=== PATIENT | female | born 1955 | race Caucasian/White ===

== ENCOUNTER 2020-10-28 06:41 | Observation (INO) ==
--- NOTE | 2020-10-07 10:35 | PAT Medication Instructions ---
Medication Instructions Date of Service October 07, 2020 Home Medications Medication Instructions Recorded 3-in-1 Commode #1 ea 08/25/20 Wheeled Walker #1 ea 08/25/20 calcium carbonate 600 mg calcium (1,500 mg) tablet 600 mg PO QAM diclofenac potassium 50 mg tablet 50 mg PO BID lisinopril 20 mg-hydrochlorothiazide 12.5 mg tablet 1 tab PO QAM rosuvastatin 20 mg tablet 10 mg PO QAM aspirin 81 mg PO QAM multivitamin 1 tab PO QAM ASK your surgeon for instructions diclofenac potassium 50 mg tablet 50 mg PO BID DO NOT take the morning of surgery calcium carbonate 600 mg calcium (1,500 mg) tablet 600 mg PO QAM lisinopril 20 mg-hydrochlorothiazide 12.5 mg tablet 1 tab PO QAM multivitamin 1 tab PO QAM Take morning of surgery With a small sip of water, OTHERWISE NOTHING TO EAT OR DRINK AFTER MIDNIGHT: rosuvastatin 20 mg tablet 10 mg PO QAM aspirin 81 mg PO QAM (unless otherwise directed by surgeon) Other Notes If you have any questions please call us at [phone] or [phone] or [phone] or [phone]
--- NOTE | 2020-10-10 10:21 | Anesthesiology Consultation ---
Date of Service October 10, 2020 Assessment & Plan (1) Encounter for pre-operative examination: Per assessment on 10/10: Travel screen negative. No known COVID-19 positive cont acts or current COVID-19 related symptoms. Patient states that for her Thanksgiving plans, she had planned on attending a Thanksgiving dinner with extended family of 30+ people 10/22. She was advised that if she choosing to attend this, she will need to have her surgery postponed due to the large ga thering and proximity of her surgery (she was also made aware that household members could not attend as well). She also states that her immediate family was planning on visiting for dinner 10/20 (son's family of 8 in addition to her household). Case reviewed with Kristina Lamb. Advised that okay to have this as long as social distancing/wearing mask/eating among households/following COVID precaution guidelines. The son's family cannot stay in patient's household for extended period of time due to proximity of surgery. Options reviewed with patient. Per Yanira at surgeon's office, she spoke with patient 10/11 and patient decided to cancel all Thanksgiving plans and keep surgery date as scheduled. Surgeon arranging preop COVID testing. Awaiting results. Chart Review Chart Review: Acceptable Risk for Surgery and Patient seen in Pre Admission Testing Teaching & Discussion Pre-Anesthesia Teaching/Discussion Notes: Instructed NPO after midnight before surgery,except medications with 15 cc of water. Medication instructions provided according to the PAT guidelines. History Surgery Operation Date: 10/28/20 10:40 Proposed Procedures p Left Total Hip Arthroplasty - Alcides Wen MD Height/Weight Height: 5 ft 2 in Weight: 64 kg Allergies Allergy/AdvReac Type Severity Reaction Status Date / Time No Known Allergies Allergy Unverified 09/30/20 13:21 Medications Home Medications Medication Instructions Recorded Confirmed Last Taken calcium carbonate 600 mg calcium 600 mg PO QAM 10/30/19 09/30/20 Unknown (1,500 mg) tablet diclofenac potassium 50 mg tablet 50 mg PO BID 10/30/19 09/30/20 Unknown lisinopril 20 1 tab PO QAM 10/30/19 09/30/20 Unknown mg-hydrochlorothiazide 12.5 mg tablet rosuvastatin 20 mg tablet 10 mg PO QAM 10/30/19 09/30/20 Unknown 3-in-1 Commode #1 ea 08/25/20 08/25/20 Unknown Wheeled Walker #1 ea 08/25/20 08/25/20 Unknown aspirin 81 mg PO QAM 09/30/20 09/30/20 Unknown multivitamin 1 tab PO QAM 09/30/20 09/30/20 Unknown Past Medical History Medical History Hip bursitis, left Hyperlipidemia Hypotension Osteoarthritis Exercise / Class Metabolic Activity II 4-5 Yardwork/Stairs/Walk up hill Past Family History Family History Mother Hypertension Father Diabetes Other No family history of adverse response to anesthesia Past Surgical History Surgical History History of colonoscopy History of right hip replacement History of wisdom tooth extraction Past Anesthesia History No Hx of Anesthesia Complications and No Family Hx of Anesthesia Complications History of PONV No Hx of PONV and No Hx of Motion Sickness Social History Smoking Status: Never smoker Do You Dip or Chew Tobacco: No Hx Alcohol Use: No Hx Substance Use: No substance use type: does not use Review of Systems Patient denies chest pain, shortness of breath, dyspnea on exertion, fever. chills, cough, wheezing, palpitations. Physical Exam Vital Signs VITALS BP 145/83 P 65 TEMP 98.6 SP02 98%RA RESP 16 PHYSICAL Full neck and c-spine range of motion. Full TMJ range of motion. TMD 3 finger breaths Mallampati Score 2 Dentition: intact Lungs: clear throughout to auscultation Cardiac: regular rate and rhythm, no murmurs noted Spine: normal Carotid arteries: negative bruit Extremities: no edema Testing Laboratory Results 10/10/20 10:46 10/10/20 10:46 PT 10.7 Seconds (9.0-12.0) 10/10/20 10:46 INR 1.0 (0.9-1.1) 10/10/20 10:46 APTT 24.4 Seconds (21.0-31.0) 10/10/20 10:46 Blood Type A Positive 10/10/20 10:46 Antibody Screen NEGATIVE 10/10/20 10:46 Electrocardiogram Date: 10/10/20 SB at 58bpm. LAD. Chest X-Ray Date: 10/10/20 FINDINGS: PA and lateral chest radiographs are compared to study dated 04/04/2015. The cardiomediastinal silhouette is unremarkable. The lungs and pleural spaces are clear. There is no pneumothorax. The bony thorax appears intact. A large calcified joint body is seen in the right shoulder. Degenerative change is noted in the thoracic spine. IMPRESSION: No active disease in the chest.
--- NOTE | 2020-10-10 11:28 | XRay Report ---
TWO VIEW CHEST CLINICAL HISTORY: Preoperative examination. FINDINGS: PA and lateral chest radiographs are compared to study dated 04/04/2015. The cardiomediastin al silhouette is unremarkable. The lungs and pleural spaces are clear. There is no pneumothorax. The bony thorax appears intact. A large calcified joint body is seen in the right shoulder. Degenerative change is noted in the thoracic spine. IMPRESSION: No active disease in the chest. ACT 112: Negative or not required by law. Electronically signed by: Quique Marquez M.D. 10/10/2020 11:27 AM
[2020-10-10 12:27] LABS: Basophils # (auto) 0.02 K/uL (0-0.2); Basophils % (auto) 0.3 %; Eosinophils # (auto) 0.04 K/uL (0-0.5); Eosinophils % (auto) 0.5 %; Lymphocytes # (auto) 1.59 K/uL (1.2-3.4); Lymphocytes % (auto) 21.4 %; Mean Corpuscular Hemoglobin 32.5 pg (25-34); Mean Corpuscular Hgb Conc 33.3 g/dL (32-36); Mean Corpuscular Volume 97.4 fL (80-100); Mean Platelet Volume 12.1 fL (7.4-10.4); Monocytes # (auto) 0.51 K/uL (0.11-0.59); Monocytes % (auto) 6.9 %; Neutrophils # (auto) 5.26 K/uL (1.4-6.5); Neutrophils % (auto) 70.9 %; Platelet Count 262 K/uL (130-400); RDW Coefficient of Variation 13.2 % (11.5-14.5); RDW Standard Deviation 47.2 fL (36.4-46.3); Red Blood Count 4.31 M/uL (4.2-5.4); White Blood Count 7.42 K/uL (4.8-10.8)
[2020-10-10 12:45] LABS: Partial Thromboplastin Ratio 0.9; Partial Thromboplastin Time 24.4 Seconds (21.0-31.0); Prothrombin Time 10.7 Seconds (9.0-12.0)
[2020-10-10 13:22] LABS: BUN Creatinine Ratio 30.6 (10-20); Blood Urea Nitrogen 24 mg/dl (7-18); C Reactive Protein < 0.29 mg/dl (0-0.29); Calcium 9.7 mg/dl (8.5-10.1); Carbon Dioxide 30 mmol/L (21-32); Chloride 105 mmol/L (98-107); Creatinine Clr Calc Pharmacy 61.6 ml/min; Est GFR (African American) 90.4; Glucose 94 mg/dl (70-99); Potassium 3.4 mmol/L (3.5-5.1); Sodium 140 mmol/L (136-145)
--- NOTE | 2020-10-10 13:26 | Electrocardiogram Report ---
Test Reason : Blood Pressure : / mmHG Vent. Rate : 058 BPM Atrial Rate : 058 BPM P-R Int : 148 ms QRS Dur : 090 ms QT Int : 432 ms P-R-T Axes : 066 -32 041 degrees QTc Int : 424 ms Sinus bradycardia Left axis deviation Abnormal ECG When compared with ECG of 04-APR-2015 11:33, No significant change was found Confirmed by Harsh Montes ([id number]) on 10/10/2020 1:26:13 PM Referred By: Alcides Wen Confirmed By:Harsh Montes
--- NOTE | 2020-10-21 10:01 | History and Physical Report ---
DATE OF ADMISSION: 10/28/2020 CHIEF COMPLAINT: Left hip pain and discomfort. HISTORY OF PRESENT ILLNESS: The patient is a 65-year-old female from [place] who presents for treatment of her left hip. She had a fairly long history of hip problems and had her right hip replaced back in 2014. She has had some intermittent bursal symptoms from this side. She has developed increased pain and discomfort in her left hip over the years. She describes groin pain, thigh pain and knee pain. Denies any numbness. It is affecting her ability to walk and get around. She has pain going up and down steps. She has nighttime pain. She has difficulty putting her shoes and socks on. She would like to proceed with left hip replacement. PAST MEDICAL HISTORY: Significant for, 1. Hypertension. 2. Elevated cholesterol. 3. Osteoarthritis. 4. Lumbar spondylosis. PAST SURGICAL HISTORY: Includes right hip replacement done on 05/03/2015. ALLERGIES: None. CURRENT MEDICINES: 1. Multiple anti-inflammatory agents. 2. Calcium carbonate. 3. Diclofenac. 4. Lisinopril/hydrochlorothiazide. 5. Rosuvastatin. SOCIAL HISTORY: A 65-year-old white female. She is from [place]. Her family is farmers. FAMILY HISTORY: Noncontributory. REVIEW OF SYSTEMS: Negative for diabetes, neurologic problem, vascular problems or bleeding disorders. No chest pain or shortness of breath. No history of DVT or PE. No known bleeding problems. PHYSICAL EXAMINATION: GENERAL: Shows a pleasant, middle-aged female. Looks to be in pretty good health. HEENT: Benign. NECK: Supple, no lymphadenopathy. LUNGS: Clear to auscultation. HEART: Has a regular rate and rhythm. ABDOMEN: Soft, nontender, nondistended. EXTREMITIES: Grossly neurovascularly intact except as follows: Examination of the hips reveals patient walks independently. She does limp on the left side. She is about 1/2-1/4 cm short on the left side compared to the right. Her left hip is very stiff with internal rotation and neutral at best. It recreates pain. Negative straight leg raise. No knee effusion. Examination of the right hip reveals a very mobile hip. Incision has healed nicely. Painless hip motion. X-RAYS: X-rays of the left hip were reviewed. It shows advanced left hip DJD. She has got complete loss of superior joint space with flattening of the femoral head. The right hip replacement looks to be in good position. No signs of wear. ASSESSMENT: A 65-year-old white female, 5 years out from right hip replacement, with several other comorbidities including hypertension, elevated cholesterol with advanced left hip degenerative joint disease. Very minimal response to conservative care. It is affecting her quality of life and she would like to have her left hip fixed. PLAN: We will proceed with left total hip replacement. The risks and benefits of this procedure were explained to the patient including but not limited to DVT, PE, , infection, neurological injury, vascular injury, bleeding problem, pain, limited range of motion, stiffness, failure to relieve her symptoms, incomplete relief of symptoms, need for further surgery in the future, fracture, leg length inequality, nerve palsy, dislocation, need for revision surgery, etc. The patient understands and desires to proceed. Informed consent was obtained. She will need to hold her NSAIDs 10 days preop. She will need to hold her lisinopril on the morning of surgery. She is planning to be discharged to home with [facility] program.
[~2020-10-28 06:41] MED LIST: ACETAMINOPHEN 500 MG TAB PO SCH; BUPIVACAINE 0.5 % 5 MG/1 ML PF 10ML VIAL ONE; FAMOTIDINE 20 MG TAB PO SCH; GABAPENTIN 300 MG CAP PO SCH; LR 500ML BOLUS, THEN 15ML/HR IV SCH; LR 60ML/HR IV SCH; METOCLOPRAMIDE HCL 10 MG TABLET PO SCH; TRANEXAMIC ACID 1,000 MG **IV Intra-op IV SCH; ceFAZolin 2000MG 2,000 MG/15 ML SYR IV SCH
--- NOTE | 2020-10-28 06:46 | History & Physical Bridge Note ---
Date of Service October 28, 2020 History & Physical Bridge Note I have examined the patient, reviewed the History & Physical and in the interval since the performance of the History & Physical I have noted the following changes of clinical significance: no changes noted
[2020-10-28] MEDS ORDERED: MIDAZOLAM HCL 1 MG/ML 2ML VIAL ONE (07:12)
[2020-10-28] MEDS ORDERED: MoRPHine SULFATE PF 1 MG/ML 10 ML AMP/VIAL ONE (07:13)
[2020-10-28] MEDS ORDERED: fentaNYL citrate 100 MCG/2 ML VIAL ONE (07:44)
[2020-10-28] MEDS ORDERED: BUPIVACAINE/EPINEPHRINE 0.5% MPF 1:200,000 30 ML VIAL ONE (08:28)
[2020-10-28] MEDS ORDERED: BACITRACIN INJ 50,000 UNIT VIAL ONE (08:28)
[2020-10-28] MEDS ORDERED: PROPOFOL IV EMULSION 10 MG/ML 20 ML VIAL IV ONE (08:58)
[2020-10-28] MEDS ORDERED: ePHEDrine sulfate 50 MG/ML SYR ONE (09:00)
[2020-10-28] MEDS ORDERED: ePHEDrine sulfate 50 MG/ML AMP ONE (09:00)
[2020-10-28] MEDS ORDERED: NALOXONE HCL 0.08 MG in SYRINGE 1.8 ML IV PRN (09:40)
[2020-10-28] MEDS ORDERED: LACTATED RINGER'S 500 ML IV PRN (09:40)
[2020-10-28] MEDS ORDERED: NALOXONE HCL 0.4 MG/1 ML VIAL/CARP IV PRN ×2 (09:40→11:20)
[2020-10-28] MEDS ORDERED: ePHEDrine sulfate 50 MG/ML AMP IV PRN (09:40)
[2020-10-28] MEDS ORDERED: MoRPHine SULFATE PF 1 MG/ML 10 ML AMP/VIAL INT SPINAL ONE (09:40)
[2020-10-28] MEDS ORDERED: PROMETHAZINE HCL 25 MG in SODIUM CHLORIDE 0.9% 50 ML IV PRN (09:40)
[2020-10-28] MEDS ORDERED: NALOXONE HCL 1 MG in SODIUM CHLORIDE 0.9% 1000ML 1,000 ML IV PRN (09:40)
[2020-10-28] MEDS ORDERED: diphenhydrAMINE 50 MG/ML VIAL IV PRN (09:40)
[2020-10-28] MEDS ORDERED: ONDANSETRON INJ 2 MG/ML 2 ML VIAL IV PRN (09:40)
[2020-10-28] MEDS ORDERED: NO NARCOTICS OR SEDATIVES SCH (09:45)
[2020-10-28] MEDS ORDERED: SODIUM CHLORIDE 0.9% 1000ML 1,000 ML IV SCH (09:45)
--- NOTE | 2020-10-28 10:05 | Post Operative Brief Note ---
PG Immediate Post Op with CF Date of Surgery October 28, 2020 Pre & Post Diagnosis Operation Date: 10/28/20 08:50 Pre-Op Diagnosis: Left Hip Advanced Degenerative Joint Disease Post-Op Diagnosis: Left Hip Advanced Degenerative Joint Disease I identified the patient and participated in the time-out.: Yes Procedure Operation Date: 10/28/20 08:50 Actual Procedures p Left Total Hip Arthroplasty--Uncemented(Left) - Alcides Wen MD Surgeon Alcides Wen MD Routing Equipment Tender ARELI Peña Estimated Blood Loss 200 Findings Consistent with Post-Op Diagnosis Fluids 800 cc. Specimens Specimen Description: A. Left Femoral Head Drains Meng Catheter Anesthesia Type Spinal MAC Complications none Disposition Accompanied Patient To Recovery: Yes Disposition: Recovery Room
--- NOTE | 2020-10-28 10:16 | Operative Report ---
Post Operative Report Pre & Post Diagnosis Operation Date: 10/28/20 08:50 Pre-Op Diagnosis: Left Hip Advanced Degenerative Joint Disease Post-Op Diagnosis: Left Hip Advanced Degenerative Joint Disease I identified the patient and participated in the time-out.: Yes Procedure Operation Date: 10/28/20 08:50 Actual Procedures p Left Total Hip Arthroplasty--Uncemented(Left) - Alcides Wen MD Surgeon Alcides Wen MD Loan Officer ARELI Peña Estimated Blood Loss 200 Findings Consistent with Post-Op Diagnosis Operative findings revealed advanced left hip DJD. She had grade 4 [id number] disease of the femoral head and acetabulum. She had significant anterior acetabular osteophytes as well as osteophytes around the femoral neck. She had a large posterior and inferior osteophyte around the acetabulum as well. Moderate-sized joint effusion. Fluids 800 cc. Specimens Left femoral head sent for pathology. Drains None. Anesthesia Type Spinal MAC Complications none Disposition Accompanied Patient To Recovery: Yes Disposition: Recovery Room Indications Patient is a 65-year-old female well-known to me from previous right hip replacement 5 years ago. She is done well from this side. Over the past year to 2 years she is developed increased pain discomfort and stiffness in her left hip. Pain became more debilitating. It was unresponsive to conservative care. She elected proceed with left total hip arthroplasty. Description of Procedure Operative implants consist of: 1. Biomet G7 size 52 mm acetabular shell. 2. 6.5 cancellous acetabular screws 1 of 35 mm length and 1 of 25 mm length. 3. An apex hole portable router operator. 4. Highly cross-linked polyethylene liner with a 52 mm outer diameter and 36 mm inner diameter. 5. Depuy Corail size 10 KLA femoral stem. 6. +5/36 mm ceramic articular ball. The patient was taken to the operating identified and placed on the operating table supine position but all contact areas were properly padded. IV antibiotics tried by anesthesia team. A spinal anesthetic and been implemented holding area. Meng catheter was placed in sterile fashion. Patient was then placed in the right lateral decubitus position. An axillary roll was placed. Stulberg hip positioner was used for positioning. Left hip and leg were then prepped and draped in usual sterile fashion. A posterior lateral approach to the left hip was then performed through a curvilinear incision centered over the greater trochanter. Sharp dissection carried through subcutaneous tissue down to level the IT band gluteal fascia. The IT band gluteal fascia then incised longitudinally in line with skin incisio n. The underlying greater bursa was excised. The piriformis and external rotators were tagged and taken off the posterior aspect of the femur. A posterior capsulotomy was then performed leaving a large flap for later repair. Great care was taken throughout the procedure protect the sciatic nerve at all times. The hip was internally rotated and dislocated. Femoral neck osteotomy cut was made with Final Cut 12 mm above the lesser trochanter. Femoral head was removed and sent for pathology. The femur was retracted anteriorly. Attention drawn the acetabulum. The acetabulum labrum was excised. The pulmonary fat was excised. Sequential reaming the acetabular was then performed given the size 43 and progressing up to 51. I did reamed a little bit with a 52 reamer and then placed a 52 mm Biomet G7 acetabular shell in about 40 degrees lateral opening and 20 degrees of anteversion. It was fixed with two 6.5 cancellous acetabular screws. Some anterior osteophytes were removed. Trial liner was placed. Attention drawn the femur. The proximal femur was entered with a cookie-cutter followed by canal finder. I then broached begin the size 8 and progressing up to a 10. Got good fit of 10. I then trialed the hip and the hip was fully stable with hip and leg extension, external rotation and flexion to 90 degrees internal rotation over [address] We elect to place these implants. Leg lengths seemed appropriate and equal. All trial implants were removed. An apex hole portable router operator was placed. Highly cross-linked polyethylene liner was placed. A Lisa KLA size 10 femoral stem was impacted in position. +5/36 mm ceramic articular ball was placed. Hip was located once again found to be stable. Attention drawn toward closing. Nupathe wounds irrigated copious also pulsatile lavage solution. I did inject locally with 60 cc of half percent Marcaine with epinephrine. The posterior capsule and external rotators were then repaired through drill holes in the posterior trochanter with #2 Tycron suture. The IT band gluteal fascia then closed #1 PDS suture running fashion. Subcutaneous tissues were closed with 2 layers the deep layer #2 Vicryl suture and subcutaneous tissues with 2-0 Dexon suture in a buried interrupted fashion the skin was closed skin effie. Legs then cleaned dried a sterile dressing composed of Xeroform, 4 x 4's, ABD pad, foam tape was applied. Patient then transferred to the recovery room in stable condition. Patient tolerated procedure well and there were no complications. Santosh Peña, my physician medical assistant internal medicine, was present for the entire procedure. His assistance was essential and required for appropriate patient positioning, prepping and draping, surgical exposure, performing the technical details of the operation, placement the implants, closure of the wound, and placement of the sterile bandage. I attest to the content of the Intraoperative Record and any orders documented therein. Any exceptions are noted below.
--- NOTE | 2020-10-28 10:38 | XRay Report ---
XR hip 1V LT w pelvis CLINICAL HISTORY: IN PACU - A/P PELVIS and LATERAL HIP COMPARISON: 06/20/2015 DISCUSSION: A total right hip arthroplasty is again visualized. There is now evidence for a total lef t hip arthroplasty. There is no dislocation. There are overlying skin effie. There is gas present w ithin the soft tissues consistent with recent surgery. IMPRESSION: Total hip arthroplasty. No evidence of dislocation ACT 112: Negative or not required by law. Electronically signed by: Brody Salder M.D. 10/28/2020 10:36 AM
--- NOTE | 2020-10-28 10:45 | Anesthesiology Progress Note ---
Date of Service October 28, 2020 Anesthesia Post Procedure Vital Signs Vital Signs: Temp Pulse Pulse Resp BP Pulse Ox 10/28/20 10:35 72 21 130/69 93 10/28/20 10:25 70 20 123/64 95 10/28/20 10:15 75 19 130/64 99 10/28/20 10:05 36.5 C 69 15 124/69 99 10/28/20 07:50 37.1 C 69 16 133/82 96 10/28/20 07:35 37.1 C 71 16 147/76 H 96 Transfer of Care Handoff Completed per policy Notes Mental Status: alert / awake / arousable Patient Amnestic to Procedure: Yes Nausea / Vomiting: adequately controlled Pain: adequately controlled Airway Patency, RR, SpO2: stable & adequate BP & HR: stable & adequate Hydration State: stable & adequate Neuraxial Anesthesia: was administered and sensory block is resolving Anesthetic Complications: no major complications apparent
[2020-10-28] MEDS ORDERED: bisacodyL 10 MG SUPP PR PRN (11:20)
[2020-10-28] MEDS ORDERED: METOCLOPRAMIDE HCL INJ 5 MG/ML 2 ML VIAL IV PRN (11:20)
[2020-10-28] MEDS ORDERED: MAGNESIUM HYDROXIDE SUSP 30 ML UDC PO PRN (11:20)
[2020-10-28] MEDS ORDERED: ALUMINUM/MAGNESIUM SUSP 30 ML UDC PO PRN (11:20)
[2020-10-28] MEDS: SODIUM CHLORIDE 0.9% 1000ML 1,000 ML IV SCH ×2 (11:40→21:35)
[2020-10-28] MEDS: KETOROLAC TROMETHAMINE 15 MG/ML VIAL IV SCH ×3 (13:28→23:43)
[2020-10-28] MEDS: ACETAMINOPHEN 500 MG TAB PO SCH ×2 (13:28→21:34)
[2020-10-28] MEDS: Scopolamine CHECK PATCH PLACEMENT SCH ×2 (15:53→23:46)
[2020-10-28] MEDS ORDERED: TRANEXAMIC ACID / 0.7% NACL 1,000 MG/100 ML BAG IV SCH (16:07)
[2020-10-28] MEDS: ceFAZolin 1000MG 1,000 MG/7.5 ML SYR IV SCH (17:48)
[2020-10-28] MEDS: ASCORBIC ACID 500 MG TAB PO SCH (18:09)
[2020-10-28] MEDS: FERROUS GLUCONATE 324 MG TAB PO SCH (18:09)
[2020-10-28] MEDS ORDERED: SENNA 8.6 MG TAB PO SCH (21:00)
[2020-10-28] MEDS: ASPIRIN 81 MG ECTAB PO SCH (21:33)
[2020-10-28] MEDS: DOCUSATE SODIUM 100 MG CAP PO SCH (21:34)
[2020-10-29] MEDS: ceFAZolin 1000MG 1,000 MG/7.5 ML SYR IV SCH (01:23)
[2020-10-29] MEDS ORDERED: HYDROmorphone INJ 0.5 MG/0.5 ML SYR IV PRN (03:40)
[2020-10-29] MEDS ORDERED: ONDANSETRON INJ 2 MG/ML 2 ML VIAL IV PRN (03:40)
[2020-10-29] MEDS ORDERED: traMADol HCL 50 MG TABLET PO PRN (03:40)
[2020-10-29] MEDS ORDERED: DC INTRASPINAL MORPHINE ONE (03:40)
[2020-10-29 04:24] LABS: Basophils # (auto) 0.01 K/uL (0-0.2); Basophils % (auto) 0.1 %; Eosinophils # (auto) 0.03 K/uL (0-0.5); Eosinophils % (auto) 0.4 %; Hematocrit (blood only) 32.1 % (37-47); Hemoglobin 10.6 g/dL (12.0-16.0); Immature Granulocytes # (auto) 0.01 K/uL (0.00-0.02); Immature Granulocytes % (auto) 0.1 %; Lymphocytes # (auto) 1.29 K/uL (1.2-3.4); Lymphocytes % (auto) 17.6 %; Mean Corpuscular Hemoglobin 32.2 pg (25-34); Mean Corpuscular Volume 97.6 fL (80-100); Monocytes # (auto) 0.61 K/uL (0.11-0.59); Monocytes % (auto) 8.3 %; Neutrophils # (auto) 5.36 K/uL (1.4-6.5); Neutrophils % (auto) 73.5 %; Platelet Count 199 K/uL (130-400); RDW Coefficient of Variation 13.1 % (11.5-14.5); RDW Standard Deviation 46.8 fL (36.4-46.3); Red Blood Count 3.29 M/uL (4.2-5.4); White Blood Count 7.31 K/uL (4.8-10.8)
[2020-10-29 04:40] LABS: BUN Creatinine Ratio 25.2 (10-20); Calcium 8.5 mg/dl (8.5-10.1); Creatinine Clr Calc Pharmacy 78.6 ml/min; Est GFR (African American) 108.9; Potassium 3.5 mmol/L (3.5-5.1)
[2020-10-29] MEDS: ACETAMINOPHEN 500 MG TAB PO SCH (06:00)
[2020-10-29] MEDS: KETOROLAC TROMETHAMINE 15 MG/ML VIAL IV SCH (06:00)
[2020-10-29] MEDS: ASCORBIC ACID 500 MG TAB PO SCH (08:00)
[2020-10-29] MEDS: FERROUS GLUCONATE 324 MG TAB PO SCH (09:00)
[2020-10-29] MEDS: Scopolamine CHECK PATCH PLACEMENT SCH (09:00)
[2020-10-29] MEDS ORDERED: LISINOPRIL/HCTZ 20/12.5MG 1 TAB TAB PO SCH (09:00)
[2020-10-29] MEDS ORDERED: CALCIUM 600MG + VIT D 400 IU TAB PO SCH (09:00)
[2020-10-29] MEDS: ASPIRIN 81 MG ECTAB PO SCH (09:00)
[2020-10-29] MEDS ORDERED: MULTIVITAMIN TAB PO SCH ×2 (09:00)
[2020-10-29] MEDS: DOCUSATE SODIUM 100 MG CAP PO SCH (09:00)
[2020-10-29] MEDS ORDERED: ROSUVASTATIN CALCIUM 10 MG TAB PO SCH (09:00)
--- NOTE | 2020-10-29 13:40 | Progress Notes ---
DATE: 10/29/2020 SUBJECTIVE: A 65-year-old female postop day #1 from a left hip replacement. She is doing quite well. Had a pretty good night. Pain is controlled. No chest pain or shortness of breath. Not feeling dizzy or lightheaded. OBJECTIVE GENERAL: Shows a pleasant, middle-aged female. She is lying in bed, looks quite comfortable this morning. LUNGS: Clear to auscultation. HEART: Has a regular rate and rhythm. ABDOMEN: Soft, nontender, nondistended. EXTREMITIES: Grossly neurovascularly intact except as follows. Examination of the left lower extremity reveals the dressing to be clean, dry and intact. Leg lengths are equal. Thigh is soft. She can dorsiflex and plantarflex her foot appropriately. ASSESSMENT: A 65-year-old female postop day #1 from a left hip replacement, doing pretty well. PLAN: 1. DVT prophylaxis including thigh-high TEDs, SCDs, and aspirin twice a day. 2. PT/OT. Weight bear as tolerated. Left total hip protocol. 3. Pain control, doing okay with current pain regimen. 4. Disposition: Plan to discharge to home with some home health later today if her pain is controlled and if she does okay in therapy.
--- NOTE | 2020-11-01 09:51 | Discharge Summary ---
Date of Service November 01, 2020 Admission HPI Per Admitting Provider Documented in the H & P Admission Exam (Per Admitting) Constitutional Documented in the H & P Discharge Data Consultations 10/29/20 08:00 Consult Case Management - Discharge Planning Routine Procedures Performed Operation Date: 10/28/20 08:50 Actual Procedures p Left Total Hip Arthroplasty--Uncemented(Left) - Alcides Wen MD Hospital Course (1) Status post total hip replacement, left: This patient is a 65 year old female admitted on 10/28/20 and underwent total hip arthroplasty. She tolerated the procedure well and there were no complications. Transferred to the PACU post op and later to the orthopedic floor for further care. She was given ancef for antibiotic prophylaxis. She was also given KARY stockings, SCDs, and aspirin for DVT prophylaxis. Hemoglobin, hematocrit, and vital signs were monitored during her hospital stay and remained stable. Did not require any blood transfusions. There were no complications during her hospital stay. By post op day #1 the patient was tolerating a regular diet, pain was reasonably controlled with oral pain medicine, and she was participating in physical therapy. On post op day #1 the patient was discharged home and set up with home health care. She was given printed discharge instructions including prescriptions for extra strength tylenol, aspirin, and tramadol. Continue physical therapy, weight bearing as tolerated. Continue KARY stockings. Continue total hip precautions. Follow up approximately 2 weeks post op or sooner if there are problems or concerns. Coding Level of Care Code None Diagnoses Status post total hip replacement, left Z96.642
== END 2020-10-29 11:29 | disposition home health service (06) ==
LOC: 3E 06:41 → ASU 06:41